=== PATIENT | male | born 1980 | race Caucasian/White ===

== ENCOUNTER 2022-10-12 11:43 | Emergency (ER) | payer SELFPAY ==
[2022-10-12 11:59] LABS: Absolute Lymphocytes (CBC) 1.6 K/uL (0.7-4.9); Hematocrit 47.4 % (39.6-49.0); Lymphocytes % 18.9 % (15.3-44.8); MCV 88.4 fL (80-100); MPV 8.2 fL (7.6-11.3); Platelets 337 thou/uL (152-406); RBC Red Blood Cell Count 5.36 M/uL (4.33-5.43)
[2022-10-12 12:02] LABS: Protime INR 1.08
[2022-10-12 12:24] LABS: Albumin 4.3 g/dL (3.4-5.0); Bilirubin Direct 0.3 mg/dL (0-0.2); Bilirubin Indirect, Calculated 0.7 mg/dL (0.2-0.8); Magnesium 2.3 mg/dL (1.6-2.4); Potassium 3.8 mEq/L (3.5-5.1); Protein, Total 8.3 g/dL (6.4-8.2); Troponin High Sensitivity 6.2 pg/mL (<58.9)
--- NOTE | 2022-10-12 12:31 | RAD REPORT ---
EXAM DESCRIPTION: RAD - Chest Single View - 10/12/2022 12:24 pm CLINICAL HISTORY: CHEST PAIN COMPARISON: No comparisons FINDINGS: Lines: None. Lungs: No evidence of edema or pneumonia. Pleural: No significant pleural effusions or pneumothorax. Cardiac: The heart size is within normal limits. Mediastinum: Within normal limits. Bones: No acute fractures. Other: None IMPRESSION: No acute cardiopulmonary disease.
[2022-10-12] MEDS ORDERED: NA CHLORIDE 0.9% 500 ML ONE (13:14)
[2022-10-12] MEDS ORDERED: ASPIRIN 325 MG TAB ONE (13:14)
--- NOTE | 2022-10-12 13:16 | EDPHYS ---
Physician Documentation [facility] Name: Kwan Bird Age: 42 yrs Sex: Male : 1980 Arrival Date: 10/12/2022 Time: 11:43 Bed 3 Private MD: ED Physician Saud Glynn HPI: 10/12 12:53 This 42 yrs old Male presents to ER via Ambulatory with complaints of Chest Pain. [facility] 12:53 patient is a 42-year-old male with no significant past medical history who presents to [facility] the ED complaining of chest pain that has been constant and rated at 3 out of 10 with radiation to the left arm. Pain described as aching and cramping with some mild associated shortness of breath. Patient denies nausea, vomiting, diaphoresis. The pain has been constant since yesterday. T Patient denies any significant past medical history and is not on medications for anything. Patient denies any family history of coronary disease . Historical: - Allergies: 11:50 Benadryl; bp - Home Meds: 11:50 None [Active]; bp - PMHx: 11:50 None; bp - Immunization history:: Adult Immunizations up to date. - Social history:: Smoking status: Patient denies any tobacco usage or history of. - Family history:: not pertinent. ROS: 12:53 Constitutional: Negative for fever, chills, and weight loss, Eyes: Negative for injury, cp3 pain, redness, and discharge, ENT: Negative for injury, pain, and discharge, Neck: Negative for injury, pain, and swelling, Respiratory: Negative for shortness of breath, cough, wheezing, and pleuritic chest pain, Abdomen/GI: Negative for abdominal pain, nausea, vomiting, diarrhea, and constipation, Back: Negative for injury and pain, : Negative for injury, bleeding, discharge, and swelling, MS/Extremity: Negative for injury and deformity, Skin: Negative for injury, rash, and discoloration, Neuro: Negative for headache, weakness, numbness, tingling, and seizure, Psych: Negative for depression, anxiety, suicide ideation, homicidal ideation, and hallucinations, Allergy/Immunology: Negative for hives, rash, and allergies, Endocrine: Negative for neck swelling, polydipsia, polyuria, polyphagia, and marked weight changes, Hematologic/Lymphatic: Negative for swollen nodes, abnormal bleeding, and unusual bruising. 12:53 Cardiovascular: Positive for chest pain. 12:53 All other systems are negative. Exam: 12:53 Constitutional: This is a well developed, well nourished patient who is awake, alert, cp3 and in no acute distress. Head/Face: Normocephalic, atraumatic. Eyes: Pupils equal round and reactive to light, extra-ocular motions intact. Lids and lashes normal. Conjunctiva and sclera are non-icteric and not injected. Cornea within normal limits. Periorbital areas with no swelling, redness, or edema. ENT: Nares patent. No nasal discharge, no septal abnormalities noted. Tympanic membranes are normal and external auditory canals are clear. Oropharynx with no redness, swelling, or masses, exudates, or evidence of obstruction, uvula midline. Mucous membranes moist. Neck: Trachea midline, no thyromegaly or masses palpated, and no cervical lymphadenopathy. Supple, full range of motion without nuchal rigidity, or vertebral point tenderness. No Meningismus. Chest/axilla: Normal chest wall appearance and motion. Nontender with no deformity. No lesions are appreciated. Cardiovascular: Regular rate and rhythm with a normal S1 and S2. No gallops, murmurs, or rubs. Normal PMI, no JVD. No pulse deficits. Respiratory: Lungs have equal breath sounds bilaterally, clear to auscultation and percussion. No rales, rhonchi or wheezes noted. No increased work of breathing, no retractions or nasal flaring. Abdomen/GI: Soft, non-tender, with normal bowel sounds. No distension or tympany. No guarding or rebound. No evidence of tenderness throughout. Back: No spinal tenderness. No costovertebral tenderness. Full range of motion. Skin: Warm, dry with normal turgor. Normal color with no rashes, no lesions, and no evidence of cellulitis. MS/ Extremity: Pulses equal, no cyanosis. Neurovascular intact. Full, normal range of motion. Neuro: Awake and alert, GCS 15, oriented to person, place, time, and situation. Cranial nerves II-XII grossly intact. Motor strength 5/5 in all extremities. Sensory grossly intact. Cerebellar exam normal. Normal gait. Psych: Awake, alert, with orientation to person, place and time. Behavior, mood, and affect are within normal limits. Vital Signs: 11:48 BP 150 / 99; Pulse 71; Resp 30; Temp 98; Pulse Ox 99% ; Weight 108.86 kg; bp 11:49 BP 150 / 99; Pulse 80; Resp 17; Pulse Ox 97% on R/A; Pain 9/10; ld1 11:49 Pain Scale: Adult ld1 Procedures: 12:53 Performed EKG interpreted by me at 11:47 AM: Rate 74, normal sinus rhythm, no evidence cp3 of acute TN QTc 382. MDM: 11:49 Patient medically screened. cp3 13:05 Differential diagnosis: acute myocardial infarction, coronary artery disease chest wall cp3 pain, congestive heart failure pleurisy, unstable angina. HEART Score: History: Slightly Suspicious (0), ECG: Normal (0), Age: Risk Factors: No Risk Factors Known (0), Troponin: < or = 1 x Normal Limit (0), Total Score = 0. Data reviewed: vital signs, nurses notes, lab test result(s), EKG, radiologic studies, plain films. Consideration of Admission/Observation Escalation of care including admission/observation considered. Patient with low risk heart score. Discussed outpatient follow-up. I considered the following discharge prescriptions or medication management in the emergency department Medications were administered in the Emergency Department. See MAR. Test considered but Not performed: Other Details CT PE protocol-negative Wells criteria. ED course: Reviewed labs, x-ray, plan of care with patient at bedside recommend outpatient follow-up with cardiology for baseline stress test and echocardiogram. 10/12 11:48 Order name: Basic Metabolic Panel; Complete Time: 12:57 bp 10/12 12:58 Interpretation: Normal except: NA 137; K 3.8; CL 106; CO2 28; ANION GAP 6.8; GLUC 98; cp3 BUN 21; CRE 1.32; GFR 69; CA 9.0. 10/12 11:48 Order name: CBC with Diff; Complete Time: 12:57 bp 10/12 12:57 Interpretation: WBC 8.70; RBC 5.36; HGB 16.1; HCT 47.4; MCV 88.4; MCH 30.0; MCHC 34.0; cp3 PLT 337; RDW 13.9; MPV 8.2; MICHELLE% 69.9; LYM% 18.9; MN% 9.3; EOSINOPHIL % 1.2; BASO% 0.7; NEUT A 6.1; LYMA 1.6; MNA 0.8; EOSA 0.1; BASOA 0.1. 10/12 11:48 Order name: LFT's; Complete Time: 12:57 bp 10/12 12:57 Interpretation: AST 29; ALT 42; ALK 109; BILIT 1.0; BILID 0.3; IBILI, CALC 0.7; TP 8.3; cp3 ALB 4.3; GLOB 4.0; A/G 1.1. 10/12 11:48 Order name: Magnesium; Complete Time: 12:57 bp 10/12 12:57 Interpretation: MG 2.3. cp3 10/12 11:48 Order name: NT PRO-BNP; Complete Time: 12:57 bp 10/12 12:57 Interpretation: NT PRO-BNP 23. cp3 10/12 11:48 Order name: PT-INR; Complete Time: 12:57 bp 10/12 11:48 Order name: Troponin HS; Complete Time: 12:57 bp 10/12 12:57 Interpretation: Troponin HS 6.2. cp3 10/12 11:48 Order name: XRAY Chest (1 view); Complete Time: 12:57 bp 10/12 12:57 Interpretation: Chest x-ray interpreted by me no acute cardiopulmonary proce. 3 10/12 11:48 Order name: EKG; Complete Time: 11:49 bp 10/12 11:48 Order name: Cardiac monitoring; Complete Time: 11:49 bp 10/12 11:48 Order name: EKG - Nurse/Tech; Complete Time: 11:49 bp 10/12 11:48 Order name: IV Saline Lock; Complete Time: 11:49 bp 10/12 11:48 Order name: Labs collected and sent; Complete Time: 11:49 bp 10/12 11:48 Order name: O2 Per Protocol; Complete Time: 11:49 bp 10/12 11:48 Order name: O2 Sat Monitoring; Complete Time: 11:49 bp Administered Medications: 13:01 CANCELLED (Physician Discretion): NS IV 0.45 % 1000 ml IV at 125 ml/hr continuous bp 13:03 Not Given (Physician Discretion): NS 0.9% IV 1000 ml IV at 125 ml/hr continuous bp 13:11 Drug: NS 0.9% IV 500 ml Route: IV; Rate: bolus; Site: right antecubital; bp 13:11 Drug: Aspirin PO 325 mg Route: PO; bp Disposition Summary: 10/12/22 13:15 Discharge Ordered Location: Home cp3 Condition: Stable cp3 Diagnosis - Chest pain, unspecified cp3 - Dehydration cp3 Followup: cp3 - With: Dimitris Olmedo MD - When: 7 - 10 days - Reason: Discharge Instructions: - Discharge Summary Sheet cp3 - Dehydration, Adult cp3 - Nonspecific Chest Pain, Adult, [facility]ro[facility] cp3 Forms: - Medication Reconciliation Form cp3 - Thank You Letter cp3 - Antibiotic Education cp3 - Prescription Opioid Use cp3 - Patient Portal Instructions cp3 - Leadership Thank You Letter cp3 Signatures: Dispatcher [employer] Saud Arce MD MD cp3 Freddy Cortez, RN RN bp Corrections: (The following items were deleted from the chart) 11:50 11:50 Allergies: No Known Allergies; bp bp 12:58 12:57 NA 137; K 3.8; CL 106; CO2 28; ANION GAP 6.8; GLUC 98; BUN 21; CRE 1.32; GFR 69; cp3 CA 9.0. cp3 13:01 12:59 NS IV 0.45 % 1000 ml IV at 125 ml/hr continuous ordered. cp3 bp
--- NOTE | 2022-10-12 13:16 | ER ---
Nurse's Notes [facility] Name: Kwan Bird Age: 42 yrs Sex: Male : 1980 Arrival Date: 10/12/2022 Time: 11:43 Bed 3 Private MD: Diagnosis: Chest pain, unspecified;Dehydration Presentation: 10/12 11:48 Chief complaint: Patient states: CHEST PAIN 7/10 SINCE Y/D WHEN WORKING IN [employer]. bp Coronavirus screen: At this time, the client does not indicate any symptoms associated with coronavirus-19. Ebola Screen: No symptoms or risks identified at this time. Initial Sepsis Screen: Does the patient meet any 2 criteria? No. Patient's initial sepsis screen is negative. Does the patient have a suspected source of infection? No. Patient's initial sepsis screen is negative. Risk Assessment: Do you want to hurt yourself or someone else? Patient reports no desire to harm self or others. Onset of symptoms was October 11, 2022 at 10:00. 11:48 Method Of Arrival: Ambulatory bp 11:48 Acuity: KEVIN 3 bp Triage Assessment: 11:50 General: Appears uncomfortable, Behavior is calm, cooperative, appropriate for age. bp Pain: Complains of pain in chest. EENT: No deficits noted. Neuro: No deficits noted. Cardiovascular: Reports chest pain. Respiratory: Reports shortness of breath. GI: No signs and/or symptoms were reported involving the gastrointestinal system. : No signs and/or symptoms were reported regarding the genitourinary system. Derm: No deficits noted. Musculoskeletal: No deficits noted. Historical: - Allergies: 11:50 Benadryl; bp - Home Meds: 11:50 None [Active]; bp - PMHx: 11:50 None; bp - Immunization history:: Adult Immunizations up to date. - Social history:: Smoking status: Patient denies any tobacco usage or history of. - Family history:: not pertinent. Screenin:49 [facility] ED Fall Risk Assessment (Adult) History of falling in the last 3 months, ld1 including since admission No falls in past 3 months (0 pts). Abuse screen: Denies threats or abuse. Denies injuries from another. Nutritional screening: No deficits noted. Tuberculosis screening: No symptoms or risk factors identified. Assessment: 11:49 General: Appears in no apparent distress. comfortable, Behavior is calm, cooperative, ld1 appropriate for age. Pain: Complains of pain in chest Pain does not radiate. Pain currently is 8 out of 10 on a pain scale. Quality of pain is described as throbbing, Pain began suddenly, Is continuous. Neuro: Level of Consciousness is awake, alert, obeys commands, Oriented to person, place, time, situation. Cardiovascular: Capillary refill < 3 seconds Patient's skin is warm and dry. Rhythm is sinus rhythm. Respiratory: Airway is patent Respiratory effort is even, unlabored. GI: Abdomen is round non-distended. : No signs and/or symptoms were reported regarding the genitourinary system. EENT: No signs and/or symptoms were reported regarding the EENT system. Derm: No signs and/or symptoms reported regarding the dermatologic system. Musculoskeletal: No signs and/or symptoms reported regarding the musculoskeletal system. Vital Signs: 11:48 BP 150 / 99; Pulse 71; Resp 30; Temp 98; Pulse Ox 99% ; Weight 108.86 kg; bp 11:49 BP 150 / 99; Pulse 80; Resp 17; Pulse Ox 97% on R/A; Pain 9/10; ld1 11:49 Pain Scale: Adult ld1 ED Course: 11:47 Patient arrived in ED. bp 11:49 Saud Glynn MD is Attending Physician. cp3 11:49 Triage completed. bp 11:49 Patient has correct armband on for positive identification. Placed in gown. Bed in low ld1 position. Call light in reach. Side rails up X2. monitoring coordinator on. Pulse ox on. NIBP on. Door closed. Noise minimized. Warm blanket given. 11:49 No provider procedures requiring assistance completed. Inserted saline lock: 20 gauge ld1 in right antecubital area, using aseptic technique. Blood collected. Patient maintains SpO2 saturation greater than 95% on room air. 11:51 Freddy Cortez RN is Primary Nurse. bp 12:26 XRAY Chest (1 view) In Process Unspecified. EDMS 13:14 Dimitris Olmedo MD is Referral Physician. cp3 13:50 Arm band placed on right wrist. ld1 13:50 IV discontinued, intact, bleeding controlled, No redness/swelling at site. ld1 Administered Medications: 13:01 CANCELLED (Physician Discretion): NS IV 0.45 % 1000 ml IV at 125 ml/hr continuous bp 13:03 Not Given (Physician Discretion): NS 0.9% IV 1000 ml IV at 125 ml/hr continuous bp 13:11 Drug: NS 0.9% IV 500 ml Route: IV; Rate: bolus; Site: right antecubital; bp 13:11 Drug: Aspirin PO 325 mg Route: PO; bp Medication: 11:49 VIS not applicable for this client. ld1 Outcome: 13:15 Discharge ordered by . cp3 13:50 Discharged to home ambulatory. ld1 13:50 Condition: stable 13:50 Discharge instructions given to patient, Instructed on discharge instructions, follow up and referral plans. Demonstrated understanding of instructions, follow-up care. 13:50 Patient left the ED. ld1 Signatures: Dispatcher [employer] Saud Arce MD MD cp3 Freddy Cortez, RN RN Lisy Baird RN RN ld1 Corrections: (The following items were deleted from the chart) 11:50 11:50 Allergies: No Known Allergies; bp bp
[2022-10-12 14:53] VITALS: BP 150/99; TEMP 98; O2SAT 97
--- NOTE | 2022-10-13 15:53 | EKG ---
Test Date: 2022-10-12 Test Time: 11:47:30 Product Safety Technician: CAL MEASUREMENT RESULTS: Intervals: Rate: 74 NC: 154 QRSD: 90 QT: 382 QTc: 424 Remer: P: 46 NC: 154 QRS: 30 T: 56 INTERPRETIVE STATEMENTS: Normal sinus rhythm Normal ECG No previous ECG available for comparison Electronically Signed On 10-13-22 15:52:13 CDT by Dimitris Olmedo
== END 2022-10-12 13:50 | disposition home or self-care (01) ==
LOC: ER 11:43
DX: R07.9 Chest pain, unspecified (principal); E86.0 Dehydration
CPT/HCPCS: 36415; 71045; 80048; 80076; 83735; 83880; 84484; 85025; 85610; 93005; 99285; J7040